=== PATIENT | female | born 2000 | race Caucasian/White ===

== ENCOUNTER 2021-12-28 17:10 | Emergency (ER) | payer OTHER, SELFPAY ==
[2021-12-28 17:18] VITALS: BP 111/76; PULSE 86; RESP 16; TEMP 37; O2SAT 100
[2021-12-28 17:36] VITALS: BP 111/76; PULSE 86; RESP 16; TEMP 37; O2SAT 100
--- NOTE | 2021-12-28 17:37 | ED.FEMALEGU ---
HPI - Female Genitourinary General Chief complaint: Urogenital-Female Stated complaint: UTI SYMPTOMS Time Seen by Provider: 12/28/21 17:38 Source: patient and RN notes reviewed Mode of arrival: ambulatory Limitations: no limitations History of Present Illness HPI Narrative: 21 y/o female presented for c/o urinary frequency, urgency and burning with urination. She feels unable to void completely and has to push, and endorses suprapubic pressure. Denies abdominal pain, nausea, vomiting, flank pain, hematuria, fever or chills. She is not sexually active. Endorses current treatment for chronic/recurrent yeast infection. Hx RA. Related Data Home Medications Medication Instructions Recorded Confirmed bupropion HCl 150 mg 24 hr tablet, 150 mg PO DAILY 12/28/21 12/28/21 extended release duloxetine 60 mg capsule,delayed 60 mg PO DAILY 12/28/21 12/28/21 release fluconazole 150 mg tablet 150 mg PO DAILY 12/28/21 12/28/21 folic acid 1 mg tablet 4 mg PO DAILY 12/28/21 12/28/21 itraconazole 10 mg/mL oral solution mg 12/28/21 methotrexate sodium (PF) 25 mg/mL 25 mg subcut WEEKLY 12/28/21 12/28/21 injection solution metoprolol succinate 25 mg 12.5 mg PO DAILY 12/28/21 12/28/21 tablet,extended release 24 hr norethindrone 1 mg-ethinyl 1 tablet PO DAILY 12/28/21 12/28/21 estradiol 10 mcg (24)-iron 10 mcg(2) tablet (Lo Loestrin Fe) pilocarpine HCl 5 mg tablet mg 12/28/21 prednisone 5 mg tablet mg 12/28/21 syringe with needle 1 mL 27 x 1/2 12/28/21 12/28/21 (BD Tuberculin Syringe) Allergies Allergy/AdvReac Type Severity Reaction Status Date / Time acetaminophen Allergy Unknown Verified 12/28/21 17:27 butalbital Allergy Unknown Verified 12/28/21 17:27 caffeine Allergy Unknown Verified 12/28/21 17:27 PROCHLORPERAZINE EDISYLATE Allergy Unknown Uncoded 12/28/21 17:27 PROCHLORPERAZINE MALEATE Allergy Unknown Uncoded 12/28/21 17:27 Review of Systems Review of Systems: CONSTITUTIONAL: Denies body aches, fever, chills, or sweats. CARDIOVASCULAR: Denies chest pain, palpitations, or edema. RESPIRATORY: Denies cough or dyspnea. GASTROINTESTINAL: Denies abdominal pain, nausea, vomiting, or diarrhea. GENITOURINARY: Reports dysuria, frequency, urgency, denies hematuria, flank pain SKIN: Denies rash, wounds. MUSCULOSKELETAL: Denies back pain PMFSH Comments At time of signature, I have reviewed and agree with nursing past medical, surgical, social and family history unless otherwise noted. Please see nursing chart for further information. There is no relevant family history pertinent to the presenting complaint Exam Narrative: GENERAL: Well-appearing ENT: Mucous membranes pink and moist. CHEST: Clear to auscultation. HEART: Regular rate and rhythm. ABDOMEN: Soft, nondistended, normal active bowel sounds. Mild TTP to RLQ/right suprapubic; No CVA tenderness SKIN: Warm, dry, no rash. PSYCH: Normal affect. Course Course Emergency Course: Patient is aware of diagnosis, understands and agrees to treatment plan. Anticipatory guidance given. Patient agrees to follow-up as directed and is aware of reasons to seek care at the emergency department. Portions of this record may have been created with voice recognition software Level of Care: Express Care Visit Vital Signs Vital signs: Vital Signs Temperature 98.6 F 12/28/21 17:18 Pulse Rate 86 12/28/21 17:18 Respiratory Rate 16 12/28/21 17:18 Blood Pressure 111/76 12/28/21 17:18 Pulse Oximetry 100 12/28/21 17:18 Oxygen Delivery Room Air 12/28/21 17:18 Temperature 98.6 F 12/28/21 17:36 Pulse Rate 86 12/28/21 17:36 Respiratory Rate 16 12/28/21 17:36 Blood Pressure 111/76 12/28/21 17:36 Pulse Oximetry 100 12/28/21 17:36 Oxygen Delivery Room Air 12/28/21 17:36 Reviewed MDM - Female Genitourinary MDM Narrative Medical decision making narrative: Reviewed urine dip results. Due to the fact that patient is cu
== END 2021-12-28 17:55 | disposition home or self-care (01) ==
PROVIDERS: Emergency Provider Nurse Practitioner Family
DX: R30.0 Dysuria (principal); M06.9 Rheumatoid arthritis, unspecified; F41.9 Anxiety disorder, unspecified; F32.A Depression, unspecified
CPT/HCPCS: 81003; 87086; 99213; G0463

== ENCOUNTER 2022-01-29 15:28 | Emergency (ER) | payer OTHER, SELFPAY ==
[2022-01-29 15:40] VITALS: BP 122/87; PULSE 86; RESP 20; TEMP 37; O2SAT 100
--- NOTE | 2022-01-29 15:45 | ED.FEMALEGU ---
HPI - Female Genitourinary General Chief complaint: DIET KITCHEN COOK Stated complaint: vaginal cramps/bleeding, headache, sinus pressure Source: patient Mode of arrival: ambulatory Limitations: no limitations History of Present Illness HPI Narrative: 21 y/o female presented for multiple complaints. 1. She Continues to have sinus congestion after testing positive for covid 4 days ago, was told she would be cleared yesterday. Denies sob wheezing or fever. 2. Endorses mild vaginal itching and change in vaginal odor for about 3 days. Denies discharge, dysuria, hematuria, flank pain or abdominal pain. 3. Reports irregular vaginal bleeding for about 3 days. States this is in conjunction with attempting sexual intercourse for the first time. She started oral BCP about 6 weeks ago, but did not start on the first day of her natural cycle. Patient presented a picture with small amount red blood to toilet bowl. Hx RA, taking Methotrexate Related Data Home Medications Medication Instructions Recorded Confirmed bupropion HCl 150 mg 24 hr tablet, 150 mg PO DAILY 12/28/21 12/28/21 extended release duloxetine 60 mg capsule,delayed 60 mg PO DAILY 12/28/21 12/28/21 release fluconazole 150 mg tablet 150 mg PO DAILY 12/28/21 12/28/21 folic acid 1 mg tablet 4 mg PO DAILY 12/28/21 12/28/21 itraconazole 10 mg/mL oral solution 10 mg PO DIRECTED 12/28/21 12/28/21 methotrexate sodium (PF) 25 mg/mL 25 mg subcut WEEKLY 12/28/21 12/28/21 injection solution metoprolol succinate 25 mg 12.5 mg PO DAILY 12/28/21 12/28/21 tablet,extended release 24 hr norethindrone 1 mg-ethinyl 1 tablet PO DAILY 12/28/21 12/28/21 estradiol 10 mcg (24)-iron 10 mcg(2) tablet (Lo Loestrin Fe) pilocarpine HCl 5 mg tablet 5 mg PO TID 12/28/21 12/28/21 prednisone 5 mg tablet 5 mg PO DIRECTED 12/28/21 12/28/21 syringe with needle 1 mL 27 x 1/2 12/28/21 12/28/21 (BD Tuberculin Syringe) Allergies Allergy/AdvReac Type Severity Reaction Status Date / Time acetaminophen Allergy Unknown Verified 12/28/21 17:27 butalbital Allergy Unknown Verified 12/28/21 17:27 caffeine Allergy Unknown Verified 12/28/21 17:27 PROCHLORPERAZINE EDISYLATE Allergy Unknown Uncoded 12/28/21 17:27 PROCHLORPERAZINE MALEATE Allergy Unknown Uncoded 12/28/21 17:27 Review of Systems Review of Systems: CONSTITUTIONAL: Denies body aches, fever, chills, or sweats. EYES: Denies visual changes, redness, or discharge. ENT: Denies rhinorrhea, congestion, sore throat, or otalgia. CARDIOVASCULAR: Denies chest pain, palpitations, or edema. RESPIRATORY: Denies cough or dyspnea. GASTROINTESTINAL: Denies abdominal pain, nausea, vomiting, or diarrhea. GENITOURINARY: Denies dysuria or hematuria. SKIN: Denies rash, itching, or wounds. MUSCULOSKELETAL: Denies back pain, joint pain, or myalgia. NEUROLOGIC: Denies headache, numbness, tingling, or weakness. All systems reviewed & are unremarkable except as noted in HPI and below PMFSH Comments At time of signature, I have reviewed and agree with nursing past medical, surgical, social and family history unless otherwise noted. Please see nursing chart for further information. There is no relevant family history pertinent to the presenting complaint Exam Narrative: GENERAL: Well-appearing, ENT: Mucous membranes pink and moist. Mild rhinorrhea. CHEST: Clear to auscultation. HEART: Regular rate and rhythm. ABDOMEN: Soft, nontender, nondistended, normal active bowel sounds. SKIN: Warm, dry, no rash. Capillary refill normal. Normal skin turgor. Course Course Emergency Course: Patient is aware of diagnosis, understands and agrees to treatment plan. Anticipatory guidance given. Patient agrees to follow-up as directed and is aware of reasons to seek care at the emergency department. Portions of this record may have been created with voice recognition software Level of Care: Express Care Visit Vital Signs Vital signs: Vital Signs Temperature 98.6
== END 2022-01-29 16:12 | disposition home or self-care (01) ==
PROVIDERS: Emergency Provider Nurse Practitioner Family
DX: N89.8 Other specified noninflammatory disorders of vagina (principal); B34.9 Viral infection, unspecified; M06.9 Rheumatoid arthritis, unspecified
CPT/HCPCS: 99213; G0463

== ENCOUNTER 2022-02-17 08:23 | Emergency (ER) | payer OTHER, SELFPAY ==
[2022-02-17 09:02] VITALS: BP 111/73; PULSE 105; RESP 16; TEMP 36.8; O2SAT 100
[2022-02-17 09:03] VITALS: BP 111/73; PULSE 105; RESP 16; TEMP 36.8; O2SAT 100
--- NOTE | 2022-02-17 09:11 | ED.URI ---
HPI - URI/Sore Throat General Chief Complaint: Upper Respiratory Infection Stated Complaint: cough, shortness of breath, congestion Time Seen by Provider: 02/17/22 09:25 Source: patient and RN notes reviewed Mode of arrival: ambulatory Limitations: no limitations History of Present Illness HPI Narrative: 21-year-old female history of RA presents with concern for ongoing cough, shortness of breath, nasal congestion she reports she had COVID 3 weeks ago and her symptoms such as cough, nasal congestion have worsened. She reports she feels short of breath when she is exerting herself, in the cold. Reports her nasal drainage is pickering in color. She denies any fever. MD elicited complaint: cough and nasal congestion Related Data Home Medications Medication Instructions Recorded Confirmed duloxetine 60 mg capsule,delayed 60 mg PO DAILY 12/28/21 02/17/22 release fluconazole 150 mg tablet 150 mg PO DAILY 12/28/21 02/17/22 folic acid 1 mg tablet 4 mg PO DAILY 12/28/21 02/17/22 methotrexate sodium (PF) 25 mg/mL 25 mg subcut WEEKLY 12/28/21 02/17/22 injection solution metoprolol succinate 25 mg 12.5 mg PO DAILY 12/28/21 02/17/22 tablet,extended release 24 hr pilocarpine HCl 5 mg tablet 5 mg PO TID 12/28/21 02/17/22 prednisone 5 mg tablet 5 mg PO DIRECTED 12/28/21 02/17/22 syringe with needle 1 mL 27 x 1/2 12/28/21 12/28/21 (BD Tuberculin Syringe) bupropion HCl 300 mg 24 hr tablet, 300 mg PO DAILY 02/17/22 02/17/22 extended release Allergies Allergy/AdvReac Type Severity Reaction Status Date / Time acetaminophen Allergy Unknown Verified 02/17/22 08:58 butalbital Allergy Unknown Verified 02/17/22 08:58 caffeine Allergy Unknown Verified 02/17/22 08:58 PROCHLORPERAZINE EDISYLATE Allergy Unknown Uncoded 02/17/22 08:58 PROCHLORPERAZINE MALEATE Allergy Unknown Uncoded 02/17/22 08:58 Review of Systems Review of Systems: CONSTITUTIONAL: Reports malaise. Denies chills, sweats, or fever. EYES: Denies visual changes, redness, or discharge. ENT: Reports rhinorrhea, congestion, sinus pain. Denies otalgia and sore throat. CARDIOVASCULAR: Denies chest pain, palpitations, or edema. RESPIRATORY: Reports cough, exertion dyspnea. GASTROINTESTINAL: Denies abdominal pain, nausea, vomiting, diarrhea SKIN: Denies rash or itching. MUSCULOSKELETAL: Denies myalgia. NEUROLOGIC: Denies headache. All systems reviewed & are unremarkable except as noted in HPI and below PMFSH Comments At time of signature, agree with nursing past medical, surgical, social and family history. There is no relevant family history pertinent to the presenting complaint Exam Narrative: GENERAL: Well-appearing, well-nourished, and in no acute distress. HEAD: Normocephalic EYES: PERRLA, conjunctivae clear ENT: Nares clear, turbinates edematous and erythematous. Mucous membranes moist. TM pearly pickering with dull light reflex bilaterally; no tragal tenderness. Oropharynx not erythematous without lesions. Tonsils not enlarged and without exudate, no drooling, no hoarseness, no trismus, uvula midline. NECK: Supple. No lymphadenopathy CHEST: Clear to auscultation, breath sounds equal. No wheezing, rhonchi, rales, or stridor. No respiratory distress, speaks in full sentences. HEART: Regular rate and rhythm. No murmur heard. SKIN: Warm, dry, no rash. NEURO: Alert and oriented x3. PSYCH: Normal mood and affect Course Course Emergency Course: Patient is aware of diagnosis, understands and agrees to treatment plan. Anticipatory guidance given. Patient agrees to follow-up as directed and is aware of reasons to seek care at the emergency department. Portions of this record may have been created with voice recognition software Level of Care: Express Care Visit Vital Signs Vital signs: Vital Signs Temperature 98.3 F 02/17/22 09:02 Pulse Rate 105 H 02/17/22 09:02 Respiratory Rate 16 02/17/22 09:02 Blood Pressure 111/73 02/17/22 09:02 Pulse Oximetry 100
== END 2022-02-17 09:42 | disposition home or self-care (01) ==
PROVIDERS: Emergency Provider Nurse Practitioner
DX: J32.9 Chronic sinusitis, unspecified (principal); J40 Bronchitis, not specified as acute or chronic; Z86.16 Personal history of COVID-19; M06.9 Rheumatoid arthritis, unspecified; F41.9 Anxiety disorder, unspecified; F32.A Depression, unspecified
CPT/HCPCS: 99213; G0463

== ENCOUNTER 2022-03-09 18:20 | Emergency (ER) | payer OTHER, SELFPAY ==
[2022-03-09 18:22] VITALS: BP 113/84; PULSE 111; RESP 18; TEMP 36.1; O2SAT 99
--- NOTE | 2022-03-09 19:39 | PC.NURSE ---
patient left at 1938
== END 2022-03-09 19:39 | disposition left against medical advice (07) ==
DX: R04.0 Epistaxis (principal)
CPT/HCPCS: 99199

== ENCOUNTER 2022-05-07 13:03 | Emergency (ER) | payer OTHER, SELFPAY ==
[2022-05-07 13:16] VITALS: BP 119/77; PULSE 115; RESP 16; TEMP 36.6; O2SAT 100
[2022-05-07 13:18] VITALS: BP 119/77; PULSE 115; RESP 16; TEMP 36.6; O2SAT 100
--- NOTE | 2022-05-07 13:30 | ED.URI ---
HPI - URI/Sore Throat General Chief Complaint: Upper Respiratory Infection Stated Complaint: sore throat,nasal drainage,aches Time Seen by Provider: 05/07/22 13:30 Source: patient, RN notes reviewed and old records reviewed Mode of arrival: ambulatory Limitations: no limitations History of Present Illness HPI Narrative: 21 year old female who presents to [facility] care with complaints of sore throat since Sunday and since has had body aches, cough, fatigue, headache, nasal congestion and drainage, ear pressure,low grade fevers, and nausea and did vomit last evening. Patient reports that she did home COVID test last evening which was negative. Patient reports that she did complete amoxicillin for tooth infection and root canal recently. Patient report immunosuppression for Deja vasculitis and sees specialist at [facility], is on prednisone daily and takes methotrexate and does get infusions. MD elicited complaint: fever, cough, sore throat, nasal congestion and other (headache, body aches) Pertinent past history: immunosuppression Onset (ago): day(s) (5 days) Pain scale (0-10): 3 Able to tolerate fluids by mouth: Yes Treatments prior to arrival: cold medicine Related Data Home Medications Medication Instructions Recorded Confirmed duloxetine 60 mg capsule,delayed 60 mg PO DAILY 12/28/21 05/07/22 release folic acid 1 mg tablet 4 mg PO DAILY 12/28/21 05/07/22 methotrexate sodium (PF) 25 mg/mL 25 mg subcut WEEKLY 12/28/21 05/07/22 injection solution metoprolol succinate 25 mg 12.5 mg PO DAILY 12/28/21 05/07/22 tablet,extended release 24 hr pilocarpine HCl 5 mg tablet 5 mg PO TID 12/28/21 05/07/22 syringe with needle 1 mL 27 x 1/2 12/28/21 12/28/21 (BD Tuberculin Syringe) bupropion HCl 300 mg 24 hr tablet, 300 mg PO DAILY 02/17/22 05/07/22 extended release methylphenidate HCl 10 mg tablet 10 mg PO DAILY 05/07/22 05/07/22 prednisone 10 mg tablet 10 mg PO DAILY 05/07/22 05/07/22 Allergies Allergy/AdvReac Type Severity Reaction Status Date / Time acetaminophen Allergy Unknown Verified 05/07/22 13:14 butalbital Allergy Unknown Verified 05/07/22 13:14 caffeine Allergy Unknown Verified 05/07/22 13:14 PROCHLORPERAZINE EDISYLATE Allergy Unknown Uncoded 05/07/22 13:14 PROCHLORPERAZINE MALEATE Allergy Unknown Uncoded 05/07/22 13:14 Review of Systems Review of Systems: CONSTITUTIONAL: Reports malaise, chills, sweats, or fever. EYES: Denies visual changes, redness, or discharge. ENT: Reports rhinorrhea, congestion, sinus pain, otalgia and sore throat. CARDIOVASCULAR: Denies chest pain, palpitations, or edema. RESPIRATORY: Reports cough.? Denies dyspnea. GASTROINTESTINAL: Denies abdominal pain, nausea, vomiting, diarrhea SKIN: Denies rash or itching. MUSCULOSKELETAL: reports myalgia. NEUROLOGIC:reports headache. All systems reviewed & are unremarkable except as noted in HPI and below PMFSH Social History Social History (Updated 05/08/22 @ 08:50 by Phuong Nolan NP) Smoking status: Never smoker Alcohol intake: unknown Substance use type: does not use Living arrangements: with family Gender identity (if verbalized by the patient): Female Comments At time of signature, agree with nursing past medical, surgical, social and family history. There is no relevant family history pertinent to the presenting complaint Exam Narrative: GENERAL: Well-appearing, well-nourished, and in no acute distress. HEAD: Normocephalic EYES: PERRLA, conjunctivae clear ENT: Nares clear, turbinates edematous and erythematous, clear discharge. Mucous membranes moist, headache,sinus pressure. TM pearly pickering with dull light reflex bilaterally; no tragal tenderness. Oropharynx erythematous without lesions. Tonsils red not enlarged and without exudate, no drooling, no hoarseness, no trismus, uvula midline.post nasal congestion with drainage NECK: Supple. No lymphadenopathy CHEST: Clear to
== END 2022-05-07 14:32 | disposition home or self-care (01) ==
PROVIDERS: Emergency Provider Registered Nurse
DX: J02.9 Acute pharyngitis, unspecified (principal); J06.9 Acute upper respiratory infection, unspecified; R05.9 Cough, unspecified; Z20.822 Contact with and (suspected) exposure to COVID-19; M31.30 Wegener's granulomatosis without renal involvement
CPT/HCPCS: 87081; 87426; 87804; 87880; 99213; C9803; G0463

== ENCOUNTER 2022-07-26 14:59 | Emergency (ER) | payer OTHER, SELFPAY ==
--- NOTE | 2022-07-26 15:09 | ED.GENADULT ---
HPI - General Adult General Chief complaint: Urogenital-Female Stated complaint: UTI SYMPTOMS/SINUS CONGESITON/RA FLARE UP Source: patient and RN notes reviewed History of Present Illness HPI narrative: 21 yo F, with hx of RA, presents to urgent care stating she thinks she has a UTI, possibly another sinus infection, and her RA is flaring up. Pt states she has been having mid lower abdominal pain x 2 days that worsens with urination. Pt denies any burning with urination, flank pain, back pain, vomiting, or diarrhea. Pt states she gets sinus infections often and recently took Cefdinir 2 weeks ago for one. Pt states she has been congested for about a week now. Reports bilateral ear discomfort and scratchy throat. Pt states she feels like her joints are swelling up in places for the last week or so. Pt takes 5 mg of prednisone daily and is working on tapering down. Denies any fevers, chills, chest pain, or SOB. Related Data Home Medications Medication Instructions Recorded Confirmed duloxetine 60 mg capsule,delayed 60 mg PO DAILY 12/28/21 07/26/22 release folic acid 1 mg tablet 4 mg PO DAILY 12/28/21 07/26/22 methotrexate sodium (PF) 25 mg/mL 25 mg subcut WEEKLY 12/28/21 07/26/22 injection solution metoprolol succinate 25 mg 25 mg PO DAILY 12/28/21 07/26/22 tablet,extended release 24 hr pilocarpine HCl 5 mg tablet 5 mg PO TID 12/28/21 07/26/22 syringe with needle 1 mL 27 x 1/2 12/28/21 12/28/21 (BD Tuberculin Syringe) bupropion HCl 300 mg 24 hr tablet, 150 mg PO DAILY 02/17/22 07/26/22 extended release prednisone 10 mg tablet 5 mg PO DAILY 05/07/22 07/26/22 Allergies Allergy/AdvReac Type Severity Reaction Status Date / Time acetaminophen Allergy Unknown Verified 07/26/22 15:07 butalbital Allergy Unknown Verified 07/26/22 15:07 caffeine Allergy Unknown Verified 07/26/22 15:07 PROCHLORPERAZINE EDISYLATE Allergy Unknown Uncoded 07/26/22 15:07 PROCHLORPERAZINE MALEATE Allergy Unknown Uncoded 07/26/22 15:07 Review of Systems Review of Systems: Pertinent positives and pertinent negatives per HPI. [facility] Social History Social History (Updated 05/08/22 @ 08:50 by Phuong Nolan NP) Smoking status: Never smoker Alcohol intake: unknown Substance use type: does not use Living arrangements: with family Gender identity (if verbalized by the patient): Female Comments At the time of my signature, I reviewed and agree with the nursing past medical, surgical, social, and family history. There is no relevant family history pertinent to the patient complaint. Exam Narrative: GENERAL: This is a well-nourished, well-developed patient, in no apparent distress. HEAD: normocephalic, atraumatic. EYES: Sclera clear/white. Vision is grossly intact. EARS: External ears normal, auditory canals clear and without drainage, TMs normal without perforation. Hearing grossly intact. NOSE: External nose normal with no obvious nasal discharge, nares without redness, no rhinorrhea. THROAT: Mucous membranes moist, posterior pharynx clear. NECK: Neck supple, non-tender without lymphadenopathy, masses or thyromegaly. CARDIOVASCULAR: Regular rate and rhythm without murmurs, gallops, or rubs. RESPIRATORY: Clear to auscultation. Breath sounds equal bilaterally. No wheezes, rales, or rhonchi. GASTROINTESTINAL: Abdomen soft, nondistended. No hepato-splenomegaly, or palpable masses. No guarding. Mild tenderness over suprapubic region. SKIN: warm, intact with no suspicious lesions or rash, good texture and turgor. NEURO: awake, alert, and oriented to person, place and time. There were no obvious focal neurologic abnormalities. Course Course Level of Care: Express Care Visit Vital Signs Vital signs: Vital Signs Temperature 97.9 F 07/26/22 15:12 Pulse Rate 89 07/26/22 15:12 Respiratory Rate 16 07/26/22 15:12 Blood Pressure 117/78 07/26/22 15:12 Pulse Oximetry 99 07/26/22 15:12
[2022-07-26 15:12] VITALS: BP 117/78; PULSE 89; RESP 16; TEMP 36.6; O2SAT 99
== END 2022-07-26 15:29 | disposition home or self-care (01) ==
PROVIDERS: Emergency Provider Nurse Practitioner Family
DX: N39.0 Urinary tract infection, site not specified (principal); J06.9 Acute upper respiratory infection, unspecified; G90.A Postural orthostatic tachycardia syndrome [POTS]; M05.20 Rheumatoid vasculitis with rheumatoid arthritis of unspecified site; F41.9 Anxiety disorder, unspecified; F32.A Depression, unspecified
CPT/HCPCS: 81003; 81025; 87086; 87088; 99213; G0463

== ENCOUNTER 2022-08-07 13:15 | Emergency (ER) | payer OTHER, SELFPAY ==
--- NOTE | 2022-08-07 13:18 | ED.URI ---
HPI - URI/Sore Throat General Chief Complaint: Upper Respiratory Infection Stated Complaint: cough,sore throat,congestion,headache,diarrhea Time Seen by Provider: 08/07/22 13:18 Source: patient Mode of arrival: ambulatory Limitations: no limitations History of Present Illness HPI Narrative: Diann is a 21-year-old female patient presenting to the clinic today with complaints of cough, sore throat, congestion, headache, and diarrhea x1 days. She reports no known fever or chills. States she does get sick often as she is immunocompromised due to her RA medications. States she does have slight chest tightness with respiration MD elicited complaint: cough, sore throat, rhinorrhea, nasal congestion and other Related Data Home Medications Medication Instructions Recorded Confirmed duloxetine 60 mg capsule,delayed 60 mg PO DAILY 12/28/21 08/07/22 release folic acid 1 mg tablet 4 mg PO DAILY 12/28/21 08/07/22 methotrexate sodium (PF) 25 mg/mL 25 mg subcut WEEKLY 12/28/21 08/07/22 injection solution metoprolol succinate 25 mg 25 mg PO DAILY 12/28/21 08/07/22 tablet,extended release 24 hr pilocarpine HCl 5 mg tablet 5 mg PO TID 12/28/21 08/07/22 syringe with needle 1 mL 27 x 1/2 12/28/21 12/28/21 (BD Tuberculin Syringe) prednisone 10 mg tablet 10 mg PO DAILY 05/07/22 08/07/22 Allergies Allergy/AdvReac Type Severity Reaction Status Date / Time acetaminophen Allergy Unknown Verified 08/07/22 13:24 butalbital Allergy Unknown Verified 08/07/22 13:24 caffeine Allergy Unknown Verified 08/07/22 13:24 PROCHLORPERAZINE EDISYLATE Allergy Unknown Uncoded 08/07/22 13:24 PROCHLORPERAZINE MALEATE Allergy Unknown Uncoded 08/07/22 13:24 Review of Systems Review of Systems: Pertinent positives per HPI. Patient denies any fever, chills, rash, headache, visual changes, dizziness, shortness of breath, chest pain, palpitations, nausea, vomiting, constipation, abdominal pain, or any urinary issues. [facility] Social History Social History Smoking status: Never smoker Alcohol intake: unknown Substance use type: does not use Living arrangements: with family Gender identity (if verbalized by the patient): Female Comments At the time of my signature, I reviewed and agree with the nursing past medical, surgical, social, and family history. There is no relevant family history pertinent to the patient complaint. Exam Narrative: General: Well-developed, well nourished, in no apparent distress Head: Normocephalic, atraumatic Eyes: Pupils equally round and reactive to light bilaterally, EOM intact, sclera and conjunctive clear, no discharge, lids normal Ears: TMs intact and dull, ear canals clear, no drainage, grossly hearing normal. Nose: Nares patent, clear nasal discharge, mild inflammation, no sinus tenderness. Mouth: Oral pharynx without lesions or masses, good dentition, MMM. Neck: Supple, trachea midline, no enlargement of anterior or posterior cervical nodes, no thyroid masses or goiter palpable. Cardio: Regular rate and rhythm, s1 and s2 normal, no murmur appreciated. Resp: Faint expiratory wheezing, no rhonchi, rales, or rubs Course Course Emergency Course: Portions of this record may have been created with voice recognition software. Level of Care: Express Care Visit Vital Signs Vital signs: Vital signs reviewed MDM - URI/Sore Throat MDM Narrative Medical decision making narrative: At the time of visit patient is resting comfortably on the exam table. COVID, strep, and influenza testing were performed and were all negative. I suspect patient has viral syndrome/bronchitis. Patient is already taking a taper dose of prednisone so I will give her prescription for albuterol inhaler. Supportive measures were discussed with the patient she voiced understanding discharge instructions and agrees to treatment plan. We will send strep for culture
[2022-08-07 13:23] VITALS: BP 101/74; PULSE 86; RESP 16; TEMP 36.8; O2SAT 99
[2022-08-07 13:25] VITALS: BP 101/74; PULSE 86; RESP 16; TEMP 36.8; O2SAT 99
== END 2022-08-07 13:57 | disposition home or self-care (01) ==
PROVIDERS: Emergency Provider Nurse Practitioner Family
DX: J40 Bronchitis, not specified as acute or chronic (principal); B34.9 Viral infection, unspecified; Z20.822 Contact with and (suspected) exposure to COVID-19
CPT/HCPCS: 87081; 87426; 87804; 87880; 99213; C9803; G0463

== ENCOUNTER 2022-08-09 11:29 | Emergency (ER) | payer OTHER, SELFPAY ==
[2022-08-09 11:41] VITALS: BP 108/70; PULSE 102; RESP 21; TEMP 36.4; O2SAT 99
--- NOTE | 2022-08-09 11:44 | ED.URI ---
HPI - URI/Sore Throat General Chief Complaint: Upper Respiratory Infection Stated Complaint: EARACHE/SINUS CONGESTION Time Seen by Provider: 08/09/22 11:50 Source: patient Mode of arrival: ambulatory Limitations: no limitations History of Present Illness HPI Narrative: 21-year-old female presented for complaint of right ear pain for about 2 days. Also states her sinus congestion and cough is worsening. Patient was seen 2 days ago for these complaints, dx bronchitis, and given Rx albuterol inhaler which she has not taken. Taking OTC mucinex for symptoms. Denies sick contacts. States she does get sick often as she is immunocompromised due to her RA medications.?Denies ear drainage, tinnitus, dizziness, sob, wheezing, n/v/d/f/c. Related Data Home Medications Medication Instructions Recorded Confirmed duloxetine 60 mg capsule,delayed 60 mg PO DAILY 12/28/21 08/07/22 release folic acid 1 mg tablet 4 mg PO DAILY 12/28/21 08/07/22 methotrexate sodium (PF) 25 mg/mL 25 mg subcut WEEKLY 12/28/21 08/07/22 injection solution metoprolol succinate 25 mg 25 mg PO DAILY 12/28/21 08/07/22 tablet,extended release 24 hr pilocarpine HCl 5 mg tablet 5 mg PO TID 12/28/21 08/07/22 syringe with needle 1 mL 27 x 1/2 12/28/21 12/28/21 (BD Tuberculin Syringe) prednisone 10 mg tablet 10 mg PO DAILY 05/07/22 08/07/22 Allergies Allergy/AdvReac Type Severity Reaction Status Date / Time acetaminophen Allergy Unknown Verified 08/07/22 13:24 butalbital Allergy Unknown Verified 08/07/22 13:24 caffeine Allergy Unknown Verified 08/07/22 13:24 PROCHLORPERAZINE EDISYLATE Allergy Unknown Uncoded 08/07/22 13:24 PROCHLORPERAZINE MALEATE Allergy Unknown Uncoded 08/07/22 13:24 Review of Systems Review of Systems: CONSTITUTIONAL: Denies malaise, chills, or fever. EYES: Denies visual changes, redness, or discharge. ENT: Denies rhinorrhea, congestion, sinus pain, and sore throat. Reports ear pain CARDIOVASCULAR: Denies chest pain, palpitations, or edema. RESPIRATORY: Denies cough or dyspnea. GASTROINTESTINAL: Denies abdominal pain, nausea, vomiting, diarrhea SKIN: Denies rash or itching. MUSCULOSKELETAL: Denies myalgia. NEUROLOGIC: Denies headache. All systems reviewed & are unremarkable except as noted in HPI and below PMFSH Past Medical History Medical History Rheumatoid arthritis Deja's granulomatosis Social History Social History Smoking status: Never smoker Alcohol intake: unknown Substance use type: does not use Living arrangements: with family Gender identity (if verbalized by the patient): Female Comments At time of signature, agree with nursing past medical, surgical, social and family history. There is no relevant family history pertinent to the presenting complaint Exam Narrative: GENERAL: Well-appearing, well-nourished, and in no acute distress. HEAD: Normocephalic EYES: PERRLA, conjunctivae clear ENT: Nares clear. Mucous membranes moist. Nasal congestion. Left TM pearly pickering with dull light reflex; right TM erythematous and bulging, no tragal tenderness. Oropharynx not erythematous without lesions. CHEST: Clear to auscultation, breath sounds equal. No wheezing, rhonchi, rales, or stridor. No respiratory distress, speaks in full sentences. HEART: Regular rate and rhythm. No murmur heard. SKIN: Warm, dry, no rash. NEURO: Alert and oriented x3. PSYCH: Normal mood and affect Course Course Emergency Course: Patient is aware of diagnosis, understands and agrees to treatment plan. Anticipatory guidance given. Patient agrees to follow-up as directed and is aware of reasons to seek care at the emergency department. Portions of this record may have been created with voice recognition software Level of Care: Express Care Visit Vital Signs Vital signs: Reviewed MDM - URI/Sore Throat MDM N
== END 2022-08-09 12:04 | disposition home or self-care (01) ==
PROVIDERS: Emergency Provider Nurse Practitioner Family
DX: H66.001 Acute suppurative otitis media without spontaneous rupture of ear drum, right ear (principal); M06.9 Rheumatoid arthritis, unspecified; M31.30 Wegener's granulomatosis without renal involvement
CPT/HCPCS: 99213; G0463

== ENCOUNTER 2022-09-23 15:24 | Emergency (ER) | payer OTHER, SELFPAY ==
[2022-09-23 15:34] VITALS: BP 116/79; PULSE 100; RESP 16; TEMP 36.6; O2SAT 98
--- NOTE | 2022-09-23 15:59 | ED.GENADULT ---
HPI - General Adult General Chief complaint: Upper Respiratory Infection Stated complaint: vaginal itch,sinus pain,neck pain Time Seen by Provider: 09/23/22 15:59 Source: patient Mode of arrival: ambulatory Limitations: no limitations History of Present Illness HPI narrative: 21-year-old female with a history of RA presented with multiple complaints today. 1. Patient reports left-sided neck pain. She states his been present for months, worsening over the past few weeks. She states it flares up when she has steroid adjustments. Endorses it feels like a nerve impingement. She has been wearing a cervical collar and taking an muscle relaxer tizanidine to help her sleep, small amount of marijuana RSO, and Tylenol. She raises pain a 9/10 at its worst. Pain radiates into the left face, left neck, trap, and left upper arm. She denies decreased range of motion to the neck or shoulder. Denies injury. 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 2. Reports concern for sinus infection. States she has left facial numbness and and crust to the left nostril, stuffy nose and congestion. Pain radiates to the jaw. Not taking anything for these symptoms. Patient reports chronic intermittent sinus infections over the past months, this one worsening over the past few weeks. Patient has been seen many times for sinus symptoms. 3. Reports vaginal itching for about 1 week, with fishy smell and white milky vaginal discharge. States symptoms are not similar to previous yeast infections. Patient has IUD. Denies concern for std. Denies vaginal bleeding, dyspareunia, abdominal pain, urinary complaints, fever or chills. Patient takes Bactrim 3 days/week for 'frequent infections.' States she does get sick often as she is immunocompromised due to her RA medications.? Related Data Home Medications Medication Instructions Recorded Confirmed duloxetine 60 mg capsule,delayed 60 mg PO DAILY 12/28/21 09/23/22 release folic acid 1 mg tablet 4 mg PO DAILY 12/28/21 09/23/22 methotrexate sodium (PF) 25 mg/mL 25 mg subcut WEEKLY 12/28/21 09/23/22 injection solution metoprolol succinate 25 mg 25 mg PO DAILY 12/28/21 09/23/22 tablet,extended release 24 hr pilocarpine HCl 5 mg tablet 5 mg PO TID 12/28/21 09/23/22 syringe with needle 1 mL 27 x 1/2 12/28/21 12/28/21 (BD Tuberculin Syringe) prednisone 10 mg tablet 10 mg PO DAILY 05/07/22 09/23/22 Allergies Allergy/AdvReac Type Severity Reaction Status Date / Time acetaminophen Allergy Unknown Verified 09/23/22 17:02 butalbital Allergy Unknown Verified 09/23/22 17:02 caffeine Allergy Unknown Verified 09/23/22 17:02 PROCHLORPERAZINE EDISYLATE Allergy Unknown Uncoded 09/23/22 17:02 PROCHLORPERAZINE MALEATE Allergy Unknown Uncoded 09/23/22 17:02 Review of Systems Review of Systems: CONSTITUTIONAL: Denies body aches, fever, chills, or sweats. EYES: Denies visual changes, redness, or discharge. ENT: Reports rhinorrhea, congestion,denies sore throat, or otalgia. CARDIOVASCULAR: Denies chest pain, palpitations, or edema. RESPIRATORY: Denies cough or dyspnea. GASTROINTESTINAL: Denies abdominal pain, nausea, vomiting, or diarrhea. GENITOURINARY: Reports vaginal itching and odor Denies dysuria or hematuria. SKIN: Denies rash, itching, or wounds. MUSCULOSKELETAL: Reports left neck pain, chronic joint pain and myalgia NEUROLOGIC: Denies headache, numbness, tingling, or weakness. All systems reviewed & are unremarkable except as noted in HPI and below PMFSH Past Medical History Medical History Rheumatoid arthritis Deja's granulomatosis Social History Social History Smoking status: Never smoker Alcohol intake: unknown Substance use type: does not use Living arrangements: with family Gender identity
== END 2022-09-23 17:04 | disposition home or self-care (01) ==
PROVIDERS: Emergency Provider Nurse Practitioner Family
DX: J06.9 Acute upper respiratory infection, unspecified (principal); R10.2 Pelvic and perineal pain; M54.2 Cervicalgia; M06.9 Rheumatoid arthritis, unspecified; M31.30 Wegener's granulomatosis without renal involvement
CPT/HCPCS: 81003; 99213; G0463

== ENCOUNTER 2022-11-09 16:06 | Outpatient (CLI) | payer OTHER, SELFPAY ==
--- NOTE | ~2022-11-09 | CT_ITS ---
EXAMINATION: CT sinus wo con DATE: 11/09/2022 16:38 INDICATION: Chronic sinusitis. TECHNIQUE: Computed tomography (CT) of the paranasal sinuses was performed without intravenous contra st. Iterative reconstruction technique was employed. The dose-length product was 336.21 mGy-cm. COMPARISON: None FINDINGS: The frontal sinuses are clear. There is mild mucosal thickening in the anterior ethmoid sin uses. The sphenoid sinuses are clear. There is mild mucosal thickening in inferior right maxillary si nus. There is rightward deviation of the nasal septum. The ostiomeatal units are patent. There are bi lateral Korina cells. IMPRESSION: 1. Mild mucosal thickening in the paranasal sinuses. 2. Rightward deviation of the nasal septum. Reviewed, dictated and finalized at location A.
== END 2022-11-09 16:07 | disposition home or self-care (01) ==
PROVIDERS: Visit Provider Otolaryngology
DX: J32.9 Chronic sinusitis, unspecified (principal); J34.2 Deviated nasal septum
CPT/HCPCS: 70486

== ENCOUNTER 2023-02-16 14:23 | Emergency (ER) | payer OTHER, SELFPAY ==
[2023-02-16 14:34] VITALS: BP 116/75; PULSE 73; RESP 16; TEMP 36.2; O2SAT 99
--- NOTE | 2023-02-16 15:17 | ED.FEMALEGU ---
HPI - Female Genitourinary General Chief complaint: Urogenital-Female Stated complaint: Uti symptoms Time Seen by Provider: 02/16/23 15:06 Source: patient and RN notes reviewed Mode of arrival: ambulatory Limitations: no limitations History of Present Illness HPI Narrative: Patient presents today complaining of a 2 day history of lower abdominal cramping and cloudy urine. States she gets frequent UTIs. Denies dysuria or hematuria. States she is currently taking a course of Levaquin prescribed by her ENT for sinusitis. She also has an IUD and does not have periods Related Data Home Medications Medication Instructions Recorded Confirmed duloxetine 60 mg capsule,delayed 60 mg PO DAILY 12/28/21 02/16/23 release folic acid 1 mg tablet 4 mg PO DAILY 12/28/21 02/16/23 methotrexate sodium (PF) 25 mg/mL 25 mg subcut WEEKLY 12/28/21 02/16/23 injection solution metoprolol succinate 25 mg 25 mg PO DAILY 12/28/21 02/16/23 tablet,extended release 24 hr pilocarpine HCl 5 mg tablet 5 mg PO TID 12/28/21 02/16/23 syringe with needle 1 mL 27 x 1/2 12/28/21 12/28/21 (BD Tuberculin Syringe) prednisone 10 mg tablet 5 mg PO DAILY 05/07/22 02/16/23 aripiprazole 2 mg tablet 2 mg PO DAILY 02/16/23 02/16/23 gabapentin 600 mg tablet 600 mg PO TID 02/16/23 02/16/23 levofloxacin 500 mg tablet 500 mg PO DAILY 02/16/23 02/16/23 Allergies Allergy/AdvReac Type Severity Reaction Status Date / Time acetaminophen Allergy Unknown Verified 02/16/23 14:30 butalbital Allergy Unknown Verified 02/16/23 14:30 caffeine Allergy Unknown Verified 02/16/23 14:30 PROCHLORPERAZINE EDISYLATE Allergy Unknown Uncoded 02/16/23 14:30 PROCHLORPERAZINE MALEATE Allergy Unknown Uncoded 02/16/23 14:30 Review of Systems Review of Systems: CONSTITUTIONAL: Denies body aches, fever, chills, or sweats. EYES: Denies visual changes, redness, or discharge. ENT: Denies rhinorrhea, congestion, sore throat, or otalgia. CARDIOVASCULAR: Denies chest pain, palpitations, or edema. RESPIRATORY: Denies cough or dyspnea. GASTROINTESTINAL: Denies abdominal pain, nausea, vomiting, or diarrhea.+ lower abdominal cramping GENITOURINARY: Denies dysuria or hematuria.+ cloudy urine SKIN: Denies rash, itching, or wounds. MUSCULOSKELETAL: Denies back pain, joint pain, or myalgia. NEUROLOGIC: Denies headache, numbness, tingling, or weakness. PSYCH: Denies depression or anxiety. PMFSH Past Medical History Medical History Rheumatoid arthritis Deja's granulomatosis Social History Social History Smoking status: Never smoker Alcohol intake: unknown Substance use type: does not use Living arrangements: with family Gender identity (if verbalized by the patient): Female Comments At time of signature, I have reviewed and agree with nursing past medical, surgical, social and family history unless otherwise noted. Please see nursing chart for further information. There is no relevant family history pertinent to the presenting complaint Exam Narrative: GENERAL: Well-appearing, well-nourished, and in no acute distress. HEAD: Normocephalic, atraumatic. EYES: EOMI. No redness or drainage. Conjunctivae normal. ENT: Mucous membranes pink and moist. NECK: Normal AROM. CHEST: No respiratory distress. Clear to auscultation. HEART: Regular rate and rhythm. No murmur appreciated. Normal peripheral pulses. ABDOMEN: Soft, nontender, nondistended, normal active bowel sounds. EXTREMITIES: Normal range of motion. No edema. SKIN: Warm, dry, no rash. Capillary refill normal. Normal skin turgor. NEURO: No focal deficits. Alert and oriented x3. Gait steady. PSYCH: Normal affect. No signs of depression or anxiety. Course Course Level of Care: Express Care Visit Vital Signs Vital signs: Vital Signs Temperature 97.1 F L 02/16/23 14:34 Pulse
== END 2023-02-16 15:23 | disposition home or self-care (01) ==
PROVIDERS: Emergency Provider Nurse Practitioner
DX: R10.30 Lower abdominal pain, unspecified (principal); M06.9 Rheumatoid arthritis, unspecified; M31.30 Wegener's granulomatosis without renal involvement
CPT/HCPCS: 81003; 99212; G0463

== ENCOUNTER 2023-03-03 13:20 | Emergency (ER) | payer OTHER, SELFPAY ==
[2023-03-03 13:36] VITALS: BP 95/63; PULSE 76; RESP 16; TEMP 36.4; O2SAT 100
--- NOTE | 2023-03-03 14:18 | ED.URI ---
HPI - URI/Sore Throat General Chief Complaint: Upper Respiratory Infection Stated Complaint: Cough;Bodyache;Earache Time Seen by Provider: 03/03/23 14:18 Source: patient, RN notes reviewed and old records reviewed Mode of arrival: ambulatory Limitations: no limitations History of Present Illness HPI Narrative: 22 year old female with complaints of awakening this morning with right ear pain. Patient reports that she had been ill since Sunday with virus and she thought she was on the mend. Patient reports that she had body aches chills with sinus pressure and cough but symptoms have improved. Patient reports no known fever today, continues with some sinus drainage. Patient is on immunosuppressive medications. MD elicited complaint: other (ear pain right) Pertinent past history: immunosuppression and other (reports recent viral illness) Onset (ago): hour(s) (this morning) Pain scale (0-10): 3 Able to tolerate fluids by mouth: Yes Treatments prior to arrival: none Related Data Home Medications Medication Instructions Recorded Confirmed duloxetine 60 mg capsule,delayed 60 mg PO DAILY 12/28/21 02/16/23 release folic acid 1 mg tablet 4 mg PO DAILY 12/28/21 02/16/23 methotrexate sodium (PF) 25 mg/mL 25 mg subcut WEEKLY 12/28/21 02/16/23 injection solution metoprolol succinate 25 mg 25 mg PO DAILY 12/28/21 02/16/23 tablet,extended release 24 hr pilocarpine HCl 5 mg tablet 5 mg PO TID 12/28/21 02/16/23 syringe with needle 1 mL 27 x 1/2 12/28/21 12/28/21 (BD Tuberculin Syringe) prednisone 10 mg tablet 5 mg PO DAILY 05/07/22 02/16/23 aripiprazole 2 mg tablet 2 mg PO DAILY 02/16/23 02/16/23 gabapentin 600 mg tablet 600 mg PO TID 02/16/23 02/16/23 levofloxacin 500 mg tablet 500 mg PO DAILY 02/16/23 02/16/23 diclofenac sodium 75 mg mg PO 03/03/23 tablet,delayed release leflunomide 20 mg tablet mg 03/03/23 prednisone 5 mg tablet mg 03/03/23 venlafaxine 75 mg capsule,extended mg PO 03/03/23 release 24 hr Allergies Allergy/AdvReac Type Severity Reaction Status Date / Time acetaminophen Allergy Unknown Verified 02/16/23 14:30 butalbital Allergy Unknown Verified 03/03/23 14:21 caffeine Allergy Unknown Verified 03/03/23 14:21 PROCHLORPERAZINE EDISYLATE Allergy Unknown Uncoded 03/03/23 14:21 PROCHLORPERAZINE MALEATE Allergy Unknown Uncoded 03/03/23 14:21 Review of Systems Review of Systems: CONSTITUTIONAL: Denies malaise, chills, sweats, or fever. EYES: Denies visual changes, redness, or discharge. ENT: Reports rhinorrhea, congestion, sinus pain, right otalgia and no sore throat. CARDIOVASCULAR: Denies chest pain, palpitations, or edema. RESPIRATORY: Reports cough.? Denies dyspnea. GASTROINTESTINAL: Denies abdominal pain, nausea, vomiting, diarrhea SKIN: Denies rash or itching. MUSCULOSKELETAL: Denies myalgia. NEUROLOGIC: Denies headache. All systems reviewed & are unremarkable except as noted in HPI and below PMFSH Past Medical History Medical History (Updated 03/05/23 @ 22:31 by Phuong Nolan NP) Anxiety and depression Hx of migraines IBS (irritable bowel syndrome) Rheumatoid arthritis Small fiber neuropathy Deja's granulomatosis Social History Social History Smoking status: Never smoker Alcohol intake: unknown Substance use type: does not use Living arrangements: with family Gender identity (if verbalized by the patient): Female Comments At time of signature, agree with nursing past medical, surgical, social and family history. There is no relevant family history pertinent to the presenting complaint Exam Narrative: GENERAL: Well-appearing, well-nourished, and in no acute distress. HEAD: Normocephalic EYES: PERRLA, conjunctivae clear ENT: Nares clear, turbinates edematous and erythematous, clear discharge. Mucous membranes moist.Right TM red,Left TM pearly pickering with dull light reflex ; no tragal t
== END 2023-03-03 14:33 | disposition home or self-care (01) ==
PROVIDERS: Emergency Provider Registered Nurse
DX: H65.01 Acute serous otitis media, right ear (principal); M06.9 Rheumatoid arthritis, unspecified; M31.30 Wegener's granulomatosis without renal involvement
CPT/HCPCS: 99213; G0463

== ENCOUNTER 2023-11-07 19:30 | Emergency (ER) | payer OTHER, SELFPAY ==
[2023-11-07 19:44] VITALS: BP 104/59; PULSE 83; RESP 16; TEMP 36.4; O2SAT 100
--- NOTE | 2023-11-07 19:50 | ED.URI ---
HPI - URI/Sore Throat General Chief Complaint: Upper Respiratory Infection Stated Complaint: Bronchitis History of Present Illness HPI Narrative: Patient with history of frequent sinus infections, relatively complicated medical history, presents with complaints of sinus pain and pressure along with cough for approximately 10 days. She reports body aches, chills. She is unsure fever status. She has been taking her daily medications as prescribed, not taking any additional medications for her symptoms. She denies any shortness of breath. She voices no other concerns or complaints at this time. Related Data Home Medications Medication Instructions Recorded Confirmed duloxetine 60 mg capsule,delayed 60 mg PO DAILY 12/28/21 02/16/23 release folic acid 1 mg tablet 4 mg PO DAILY 12/28/21 02/16/23 methotrexate sodium (PF) 25 mg/mL 25 mg subcut WEEKLY 12/28/21 02/16/23 injection solution metoprolol succinate 25 mg 25 mg PO DAILY 12/28/21 02/16/23 tablet,extended release 24 hr pilocarpine HCl 5 mg tablet 5 mg PO TID 12/28/21 02/16/23 syringe with needle 1 mL 27 x 1/2 12/28/21 12/28/21 (BD Tuberculin Syringe) prednisone 10 mg tablet 5 mg PO DAILY 05/07/22 02/16/23 aripiprazole 2 mg tablet 2 mg PO DAILY 02/16/23 02/16/23 gabapentin 600 mg tablet 600 mg PO TID 02/16/23 02/16/23 levofloxacin 500 mg tablet 500 mg PO DAILY 02/16/23 02/16/23 diclofenac sodium 75 mg mg PO 03/03/23 tablet,delayed release leflunomide 20 mg tablet mg 03/03/23 prednisone 5 mg tablet mg 03/03/23 venlafaxine 75 mg capsule,extended mg PO 03/03/23 release 24 hr Allergies Allergy/AdvReac Type Severity Reaction Status Date / Time acetaminophen Allergy Unknown Verified 11/07/23 19:48 butalbital Allergy Unknown Verified 11/07/23 19:48 caffeine Allergy Unknown Verified 11/07/23 19:48 prochlorperazine AdvReac Agitated Verified 11/07/23 19:50 [From [employer]] Review of Systems Review of Systems: All systems reviewed & are unremarkable except as noted in HPI and below Constitutional: Constitutional: Reports no additional constitutional complaints ENT: Reports system reviewed and no additional complaints, except as documented, Reports headache(s), Reports nasal congestion, Reports nasal discharge, Reports post nasal drip, Reports sinus pain and Reports sore throat Cardiovascular: Cardiovascular: Reports no additional cardiovascular complaints Respiratory: Respiratory: Reports no additional respiratory complaints and Reports cough Gastrointestinal: Gastrointestinal: Reports no additional gastrointestinal complaints [facility] Past Medical History Medical History (Updated 11/08/23 @ 00:01 by Donna Fox) Anxiety and depression Hx of migraines IBS (irritable bowel syndrome) Rheumatoid arthritis Small fiber neuropathy Deja's granulomatosis Social History Social History Smoking status: Never smoker Alcohol intake: unknown Substance use type: does not use Living arrangements: with family Gender identity (if verbalized by the patient): Female Exam Const: General: cooperative, no acute distress, alert and awake Orientation/consciousness: oriented to person, oriented to place and oriented to time HENMT: Head: normal to inspection Face/Nose/Sinus: No edema, sinus tenderness and Facial tenderness on exam of face and sinuses Resp: Effort & Inspection: normal respiratory effort and able to speak in complete sentences Auscultation: clear to auscultation bilaterally, no crackles, no rales, no rhonchi and no wheezes Cardio: Palpation: normal PMI Rate: regular rate Rhythm: regular rhythm Heart sounds: S1 normal heart sound present and S2 normal heart sound present Neuro: General: oriented to person, oriented to place and oriented to time Cranial nerves: Yes CN's II-XII intact bilaterally Psych: Appearance: grossly normal Thought process: Normal thought process pr
== END 2023-11-07 19:55 | disposition home or self-care (01) ==
PROVIDERS: Emergency Provider Nurse Practitioner Family
DX: J32.9 Chronic sinusitis, unspecified (principal); F41.9 Anxiety disorder, unspecified; F32.A Depression, unspecified; M06.9 Rheumatoid arthritis, unspecified; G60.8 Other hereditary and idiopathic neuropathies; M31.30 Wegener's granulomatosis without renal involvement
CPT/HCPCS: 99213; G0463